=== PATIENT | male | born 1955 | race Caucasian/White ===

== ENCOUNTER 2017-04-15 13:17 | Inpatient (IN) | END 2017-05-09 15:45 | disposition home or self-care (01) | DRG 299 ==

== ENCOUNTER 2017-06-22 23:56 | Inpatient (IN) | END 2017-06-25 15:38 | disposition home or self-care (01) | DRG 304 ==

== ENCOUNTER 2017-12-15 18:33 | Emergency (ER) | END 2017-12-15 21:49 | disposition home or self-care (01) ==

== ENCOUNTER 2018-11-17 11:36 | Emergency (ER) | payer MEDICAID ==
[~2018-11-17] VITALS: Ht 162.6 cm; Wt 67.7 kg
[~2018-11-17 11:36] MED LIST: ALDS PO; ATOR20TA65 PO; CARV25TA79 PO; CEPH-443 PO; CLON0.2T12 NGT; CLON0.2T5 PO; LISI-313 PO; LOSA50TA14 PO; METF100010 PO; NAPR-985 PO; NIFE30TA23 PO; SPIR25TA PO
[2018-11-17 11:43] VITALS: Ht 162.6 cm; Wt 67.7 kg
[2018-11-17] MEDS ORDERED: morphine 4 MG/ML VIAL IV STA (14:27)
[2018-11-17] MEDS ORDERED: ONDANSETRON 4 MG INJ IV STA (14:27)
[2018-11-17] MEDS ORDERED: SOD CHLORIDE 0.9% 500 ML IV STA (16:07)
[2018-11-17] MEDS ORDERED: SOD CHLORIDE 0.9% 100 ML ONE (16:28)
[2018-11-17] MEDS ORDERED: IOHEXOL 100 ML ONE (16:28)
[2018-11-17] MEDS ORDERED: IOHEXOL 350MG/ML 50 ML BTL ONE (16:29)
[2018-11-17 17:42] VITALS: BP 126/88; PULSE 75; RESP 18
== END 2018-11-17 17:50 | disposition home or self-care (01) ==
LOC: E/R 11:36
DX: N30.01 Acute cystitis with hematuria (principal); I10 Essential (primary) hypertension; E11.9 Type 2 diabetes mellitus without complications; Z79.84 Long term (current) use of oral hypoglycemic drugs
CPT/HCPCS: 36415; 71275; 74176; 75635; 80053; 81001; 83690; 85025; 96361; 96374; 96375; J2270; J2405; J7040; Q9967; Z7502; Z7610